=== PATIENT | male | born 1960 | race Two or more races ===

== ENCOUNTER 2017-12-09 05:21 | Inpatient (IN) | payer OTHER ==
[2017-12-09] VITALS (7 sets, daily range): BP systolic 110–130; BP diastolic 70–83
[~2017-12-09] VITALS: Ht 167.6 cm; Wt 98.4 kg
[2017-12-09] MEDS ORDERED: CELECOXIB 100 MG CAPSULE ONE (06:46)
[2017-12-09] MEDS ORDERED: CEFAZOLIN SODIUM/DEXTROSE,ISO 50 ML IV ONE (06:46)
[2017-12-09] MEDS ORDERED: oxyCODONE HCL SR 10MG TAB.SR.12H PO ONE (06:46)
[2017-12-09] MEDS ORDERED: ACETAMINOPHEN 325 MG TABLET ONE (06:46)
[2017-12-09] MEDS ORDERED: TRANEXAMIC ACID 3,000 MG in SODIUM CHLORIDE IRRIG SOLUTION 70 ML IR ONE (08:30)
[2017-12-09] MEDS ORDERED: BUPIVACAINE 0.5 % PF 150 MG/30 ML VIAL ONE (09:01)
[2017-12-09] MEDS ORDERED: KETOROLAC TROMETHAMINE INJ 30 MG/ML VIAL ONE (09:01)
[2017-12-09] MEDS ORDERED: BUPIVACAINE 0.75% DEXT-PF 2 ML AMPUL ONE (09:04)
[2017-12-09] MEDS ORDERED: MIDAZOLAM HCL 2 MG/2ML VIAL ONE (09:06)
[2017-12-09] MEDS ORDERED: FENTANYL PF 100MCG/2ML AMPUL ONE (09:06)
[2017-12-09] MEDS ORDERED: METOCLOPRAMIDE HCL 10 MG/2 ML VIAL ONE (09:07)
[2017-12-09] MEDS ORDERED: MAG HYDROX/AL HYDROX/SIMETH 30 ML UDC PO PRN ×2 (11:30→13:30)
[2017-12-09] MEDS ORDERED: MENTHOL/CETYLPYRD (CEPACOL) 1 LOZ LOZENGE MM PRN (11:30)
[2017-12-09] MEDS ORDERED: HYDROMORPHONE INJ 2 MG/ML DISP.SYRIN SQ PRN (11:30)
[2017-12-09] MEDS ORDERED: CLONIDINE HCL 0.1 MG TABLET PO PRN (11:30)
[2017-12-09] MEDS ORDERED: MAGNESIUM HYDROXIDE 30 ML UDC PO PRN ×2 (11:30→13:30)
[2017-12-09] MEDS ORDERED: ONDANSETRON HCL/PF 4 MG/2 ML VIAL IVP PRN ×3 (11:30→13:30)
[2017-12-09] MEDS ORDERED: NALOXONE HCL 0.4 MG/ML AMPUL IV PRN (11:30)
[2017-12-09] MEDS ORDERED: diphenhydrAMINE HCL 25 MG CAPSULE PO PRN (11:30)
[2017-12-09] MEDS ORDERED: oxyCODONE IR immediate release 5 MG PO PRN (12:00)
--- NOTE | 2017-12-09 12:15 | NUR ---
MS RN INITIAL NOTES 57 years old male admitted to medr unit, post op TKA right by Dr. Segovia. Patient is A/O x4, awake. Breathing on room air, denies shortness of breath. Difficulty hearing, hearing aids in place. Right knee dressing intact, scd in place. Orientation to room, unit, staff. Place call light within reach, instruction how to use provided.
[2017-12-09] MEDS ORDERED: BISACODYL SUPP (10 MG) 10 MG/SUPP.RECT SUPP.RECT RC PRN (13:00)
[2017-12-09] MEDS ORDERED: HYDROCODONE/APAP 5/325MG 1 EACH TABLET PO PRN ×2 (13:00→13:30)
[2017-12-09] MEDS ORDERED: SENNOSIDES 8.6 MG TABLET PO PRN (13:00)
[2017-12-09] MEDS ORDERED: DOCUSATE SODIUM 250 MG CAPSULE PO PRN (13:00)
[2017-12-09] MEDS ORDERED: ZOLPIDEM TARTRATE 5 MG TABLET PO PRN ×2 (13:00→13:30)
[2017-12-09] MEDS: IV D5/0.45 NACL 1,000 ML IV PRN ×2 (13:02→21:49)
[2017-12-09] MEDS ORDERED: ACETAMINOPHEN 325 MG TABLET PO PRN (13:30)
[2017-12-09] MEDS ORDERED: Z GUARD REMEDY 2 OZ OINT TP PRN (13:30)
[2017-12-09] MEDS: ANCEF 1 GM/50 ML D5W IV SCH ×2 (17:44)
[2017-12-09] MEDS: DOCUSATE SODIUM 100 MG CAPSULE PO SCH (17:46)
--- NOTE | 2017-12-09 18:23 | NUR ---
MS RN Closing notes Patient sitting up in bed, had dinner with good appetite. S/P TKA Right by Dr. Segovia today, right knee dressing intact, clean and dry. Seen by PT for eval, tolerated well, denies pain. FWB on right as ordered, tolerating CPM machine. Peterson cath in place, draining to gravity, bag off the floor. IVF infusing. VS stable. Encourage to use Incentive spirometer while awake, verbalized understanding. Will endorse to oncoming RN.
--- NOTE | 2017-12-09 19:30 | NUR ---
RN MS OPENING NOTES RECEIVED PATIENT IN BED AWAKE. ALERT AND ORIENTED X4. BREATHING EVEN AND UNLABORED. NO SOB NOTED. TOLERATING ROOM AIR. BILATERAL HEARING AIDS ON. CURRENTLY WITH NO COMPLAINTS OF PAIN OR DISCOMFORT. IV ACCESS INTACT AND PATENT - INFUSING D5 1/2 NS @ 125ML/HR. SKIN DRY AND WARM TO TOUCH. DRESSING ON SURGERY SITE CLEAN, DRY AND INTACT. DIXON CATH IN PLACE - PATENT AND DRAINING CLEAR YELLOW URINE. AFEBRILE. ALL OTHER NEEDS ATTENDED TO. SAFETY MEASURES IN PLACE. CALL LIGHT WITHIN REACH. WILL CONTINUE TO MONITOR.
[2017-12-09] MEDS ORDERED: HYDROMORPHONE INJ 2 MG/ML DISP.SYRIN IV/SQ PRN (20:30)
[2017-12-09] MEDS: TAMSULOSIN 0.4 MG CAP.SR.24H PO SCH (21:13)
[2017-12-09] MEDS: FAMOTIDINE (20 MG) 20 MG TABLET PO SCH (21:13)
[2017-12-09] MEDS: ACETAMINOPHEN 325 MG TABLET PO PRN (22:54)
[2017-12-10] MEDS: ANCEF 1 GM/50 ML D5W IV SCH ×2 (01:14)
[2017-12-10 06:27] LABS: BASOPHILS % (AUTO) 0.4 % (0.0-2.0); EOSINOPHILS % (AUTO) 0.5 % (0.0-6.0); HEMATOCRIT 40 % (39-51); HEMOGLOBIN 13.6 g/dL (13.5-17.5); LYMPHOCYTES # (AUTO) 2.2 /CMM (0.8-4.8); MEAN CORPUSCULAR HGB CONC 34 g/dl (31.0-36.0); MEAN CORPUSCULAR VOLUME 94 fL (80-96); MONOCYTES # (AUTO) 1.1 /CMM (0.1-1.30); MONOCYTES % (AUTO) 10.6 % (2.0-12.0); NEUTROPHILS # (AUTO) 7.2 /CMM (1.8-8.9); NEUTROPHILS % (AUTO) 67.5 % (43.0-81.0); PLATELET COUNT (AUTO) 259 /CMM (150-450); RDW COEFFICIENT OF VARIATION 12.4 (11.5-15.0); RED BLOOD CELL COUNT(AUTO) 4.29 MIL/uL (4.5-6.0); WHITE BLOOD COUNT (AUTO) 10.7 K/uL (4.3-11.0)
[2017-12-10] MEDS: ACETAMINOPHEN 325 MG TABLET PO PRN ×2 (06:42→20:07)
[2017-12-10 06:43] LABS: CALCIUM, SERUM 7.9 mg/dL (8.5-10.1); CREATININE 1.3 mg/dL (0.6-1.3); MAGNESIUM 1.7 mg/dL (1.8-2.4); PHOSPHORUS 2.3 mg/dL (2.5-4.9)
--- NOTE | 2017-12-10 06:50 | NUR ---
RN MS CLOSING NOTES PATIENT IN BED AWAKE. ALERT AND ORIENTED X4. BREATHING EVEN AND UNLABORED. NO SOB NOTED. TOLERATING ROOM AIR. BILATERAL HEARING AIDS ON. WITH COMPLAINTS OF MILD PAIN ON RIGHT KNEE 06/04 - TYLENOL GIVEN. IV ACCESS INTACT AND PATENT - INFUSING D5 1/2 NS @ 125ML/HR. SKIN DRY AND WARM TO TOUCH. DRESSING ON SURGERY SITE CLEAN, DRY AND INTACT. DIXON CATH IN PLACE - PATENT AND DRAINING CLEAR YELLOW URINE. AFEBRILE. ALL OTHER NEEDS ATTENDED TO. SAFETY MEASURES IN PLACE. CALL LIGHT WITHIN REACH. WILL ENDORSE TO ONCOMING NURSE FOR CONTINUITY OF CARE.
--- NOTE | 2017-12-10 07:00 | NUR ---
MS RN OPENING NOTE RECEIVED PT IN BED, ALERT AND ORIENTED X4. DENIES N/V, CHEST PAIN, SOB. BREATHING IS EVEN AND UNLABORED ON ROOM AIR. PT RATES PAIN 1/10 IN THE RIGHT KNEE AND TOLERABLE. R AC #18G IV IS INFUSING D51/2NS @ 125ML/HR WITHOUT REDNESS OR SWELLING. DIXON CATHETER NOTED TO BE DRAINING CLEAR, YELLOW URINE. R KNEE DRESSING IS CLEAN, DRY, AND INTACT. SCDS ARE IN PLACE. ALL NEEDS ATTENDED TO, BED IS LOCKED AND IN LOWEST POSITION, SIDE RAILS UP X2, CALL LIGHT WITHIN REACH.
[2017-12-10] MEDS ORDERED: LOSA1TAB39 PO (07:38)
[2017-12-10 08:00] VITALS: BP 146/85
[2017-12-10] MEDS: DOCUSATE SODIUM 100 MG CAPSULE PO SCH ×2 (08:06→17:56)
[2017-12-10] MEDS: ASPIRIN 325 MG TABLET PO SCH ×2 (08:06→17:56)
[2017-12-10] MEDS: FAMOTIDINE (20 MG) 20 MG TABLET PO SCH ×2 (08:06→20:06)
[2017-12-10] MEDS: IV D5/0.45 NACL 1,000 ML IV PRN (08:07)
[2017-12-10] MEDS: oxyCODONE IR immediate release 5 MG PO PRN ×2 (09:18→13:38)
[2017-12-10] MEDS ORDERED: ENOXAPARIN SODIUM 40 MG/0.4 ML DISP.SYRIN SQ SCH (10:00)
[2017-12-10] MEDS ORDERED: NEUTRA PHOS 1 POWD.PACKET PO ONE (10:00)
[2017-12-10] MEDS: Magnesium 1GM/D5W 100ML PREMIX 100 ML IV SCH ×3 (10:47→13:37)
--- NOTE | 2017-12-10 11:00 | NUR ---
MS RN D/C DIXON DIXON REMOVED, CATHETER TIP INTACT. PT TOLERATED PROCEDURE WELL. EDUCATED PT TO ALERT NURSING STAFF FOR THE FIRST VOID. URINAL PLACED AT THE BEDSIDE, VOIDING TRIAL INITIATED.
--- NOTE | 2017-12-10 11:45 | NUR ---
MS RN PT VOIDED PT VOIDED 175ML OF CLEAR, YELLOW URINE. REPORTS NO FEELINGS OF DISCOMFORT OR PAIN.
[2017-12-10] MEDS ORDERED: BISACODYL (5 MG) 5 MG TABLET.DR PO PRN (12:00)
[2017-12-10] MEDS ORDERED: BISACODYL SUPP (10 MG) 10 MG/SUPP.RECT SUPP.RECT RC PRN (12:00)
[2017-12-10] MEDS: LOSARTAN PO SCH (15:53)
[2017-12-10] MEDS: HCTZ PO SCH (15:53)
[2017-12-10 16:00] VITALS: BP 145/80
--- NOTE | 2017-12-10 18:04 | NUR ---
MS RN CLOSING NOTE PT IN BED, ALERT AND ORIENTED X4, DENIES N/V, CHEST PAIN, SOB, BREATHING IS EVEN AND UNLABORED ON ROOM AIR. PT RATES PAIN 4/10 IN THE RIGHT KNEE AND TOLERABLE. PT WAS ABLE TO AMBULATE WITH PHYSICAL THERAPIST TODAY X2 AND TOLERATED CPM MACHINE FOR APPROXIMATELY 4 HOURS. DRESSING IS CLEAN, DRY AND INTACT, FIRST DRESSING CHANGE TO BE DONE BY MD TOMORROW 12/11/17. NEUROVASCULAR STATUS IS INTACT, SCDS ARE IN PLACE. ALL NEEDS ATTENDED TO, BED IS LOCKED AND IN LOWEST POSITION, SIDE RAILS UP X2, CALL LIGHT WITHIN REACH. WILL ENDORSE TO GIMP TACKER RN FOR CONTINUITY OF CARE
--- NOTE | 2017-12-10 19:10 | NUR ---
MS RN OPENING NOTE Patient was seen lying in bed AAOx4, breathing comfortably on RA with no SOB, and no signs of acute distress. Right knee/leg is wrapped with a bandage that is clean, dry, and intact (s/p right knee arthroplasty on 12/09). Patient reports mild pain at this time. IV in the right AC is intact and patent. Bed is low/locked, two side rails up, and call patel within reach. Patient has no immediate needs/concerns at this time. Will continue to monitor.
[2017-12-10 20:00] VITALS: BP 148/72
[2017-12-10 20:05] VITALS: BP 148/72
--- NOTE | 2017-12-10 20:07 | NUR ---
MS RN NOTE - Tylenol Patient requested Tylenol for mild right knee pain, described at 06/04 aching (s/p knee arthroplasty 12/09). 650mg PO Tylenol was given per orders.
[2017-12-10] MEDS: TAMSULOSIN 0.4 MG CAP.SR.24H PO SCH (21:45)
--- NOTE | 2017-12-11 07:03 | NUR ---
MS RN CLOSING NOTE Patient slept well overnight without complications and remains in stable condition with no signs of acute distress. Patient care endorsed to day shift nurse.
[2017-12-11 07:13] LABS: BASOPHILS % (AUTO) 0.3 % (0.0-2.0); EOSINOPHILS % (AUTO) 0.2 % (0.0-6.0); HEMATOCRIT 39 % (39-51); HEMOGLOBIN 13.1 g/dL (13.5-17.5); LYMPHOCYTES # (AUTO) 3.3 /CMM (0.8-4.8); LYMPHOCYTES % (AUTO) 25.1 % (20.0-44.0); MEAN CORPUSCULAR HGB CONC 33 g/dl (31.0-36.0); MEAN CORPUSCULAR VOLUME 94 fL (80-96); MONOCYTES # (AUTO) 1.6 /CMM (0.1-1.30); NEUTROPHILS # (AUTO) 8.1 /CMM (1.8-8.9); NEUTROPHILS % (AUTO) 62.4 % (43.0-81.0); PLATELET COUNT (AUTO) 236 /CMM (150-450); RDW COEFFICIENT OF VARIATION 12.3 (11.5-15.0); RED BLOOD CELL COUNT(AUTO) 4.19 MIL/uL (4.5-6.0)
--- NOTE | 2017-12-11 07:15 | NUR ---
MS RN OPENING NOTE Received pt in bed, alert and oriented x4, denies n/v, chest pain, sob. Breathing is even and unlabored on room air, pt rates pain 2/10 in the r knee and tolerable at this time. R AC 18g IV is saline locked, clean, dry and intact. All needs attended to. Pt is currently on CPM machine and tolerating current settings. Bed is locked and in lowest position, side rails up x2, call light within reach.
[2017-12-11 07:21] LABS: CALCIUM, SERUM 8.2 mg/dL (8.5-10.1); CREATININE 1.1 mg/dL (0.6-1.3); MAGNESIUM 2.1 mg/dL (1.8-2.4); PHOSPHORUS 3.1 mg/dL (2.5-4.9); POTASSIUM 3.8 mmol/L (3.5-5.1)
[2017-12-11 08:00] VITALS: BP_SYST 132; BP_SYST 155; BP_DIAS 80; BP_DIAS 83
[2017-12-11] MEDS: DOCUSATE SODIUM 100 MG CAPSULE PO SCH ×2 (08:19→16:37)
[2017-12-11] MEDS: FAMOTIDINE (20 MG) 20 MG TABLET PO SCH ×2 (08:19→20:57)
[2017-12-11] MEDS: HCTZ PO SCH (08:19)
[2017-12-11] MEDS: ASPIRIN 325 MG TABLET PO SCH ×2 (08:19→16:37)
[2017-12-11] MEDS: LOSARTAN PO SCH (08:19)
[2017-12-11 16:00] VITALS: BP 141/72
[2017-12-11] MEDS ORDERED: hydrALAZINE HCL 25 MG TABLET PO PRN (16:30)
[2017-12-11] MEDS: ACETAMINOPHEN 325 MG TABLET PO PRN (17:31)
--- NOTE | 2017-12-11 18:36 | NUR ---
MS RN CLOSING NOTE PT IN BED, ALERT AND ORIENTED X4. DENIES N/V, CHEST PAIN, SOB. BREATHING IS EVEN AND UNLABORED ON ROOM AIR. PT RATES PAIN 1/10 AT THE RIGHT KNEE AND TOLERABLE AT THIS TIME. R AC #18GIV IS SALINE LOCKED WITHOUT REDNESS OR SWELLING. R KNEE DRESSING CHANGED BY MD TODAY AND IS CLEAN, DRY AND INTACT. PT ABLE TO AMBULATE X2 TODAY WITH PHYSICAL THERAPIST, SIT IN CHAIR, AND TOLERATED APPROXIMATELY 5 HOURS OF CPM. PT IS PENDING ACCEPTANCE TO [facility] FOR D/C. ALL NEEDS ATTENDED TO, SCDS IN PLACE, BED IS LOCKED AND IN LOWEST POSITION, SIDE RAILS UPX2, CALL LIGHT WITHIN REACH. WILL ENDORSE TO COLORED LIQUID PLASTIC APPLIER RN FOR CONTINUITY OF CARE.
[2017-12-11 20:00] VITALS: BP 137/76
[2017-12-11 20:26] VITALS: BP 137/76
--- NOTE | 2017-12-11 21:08 | NUR ---
recieved alert and orientated makes his needs known. smiling denies need for pain medication at this time. chucho wrap on the right knee CDI. PPP and foot warm and movement seen
[2017-12-11] MEDS: TAMSULOSIN 0.4 MG CAP.SR.24H PO SCH (22:11)
[2017-12-12] MEDS: oxyCODONE IR immediate release 5 MG PO PRN ×3 (03:57→16:42)
--- NOTE | 2017-12-12 06:21 | NUR ---
ENDING NOTES: SLEPT FOR 9 GARCIA MEDICATED X1 WITHOXYCODONE FOR RIGHT NEE PAIN AND EFFECTIVE. CPM MACHINE PUT ON PER HIS REQUISTE.RS OF THE 12 HOURS OF THIS SHIFT. VERBALIZES HIS NEEDS
--- NOTE | 2017-12-12 07:45 | NUR ---
RN OPENING NOTES RECEIVED PT. PT STABLE AND SLEEPING IN BED. NO S/S OF RESP DISTRESS/SOB. PT DOES NOT APPEAR TO BE IN PAIN AT THIS TIME. IV ACCESS ON RAC 18G SL. S/P R TOTAL KNEE PERFORMED ON 12/09, SX DRESSING CLEAN AND INTACT. PER PT NOTE, PT IS FWB ON RIGHT LEG. SAFETY MEASURES IN PLACE, CALL LIGHT WITHIN REACH. WILL CONTINUE TO MONITOR.
[2017-12-12 08:00] VITALS: BP 126/82
[2017-12-12 08:01] LABS: CALCIUM, SERUM 8.6 mg/dL (8.5-10.1); CREATININE 1.1 mg/dL (0.6-1.3); MAGNESIUM 1.8 mg/dL (1.8-2.4); PHOSPHORUS 3.3 mg/dL (2.5-4.9); POTASSIUM 4.1 mmol/L (3.5-5.1)
[2017-12-12] MEDS ORDERED: LOSARTAN/HCTZ 50-12.5MG/ 1 EA TABLET PO SCH (09:00)
[2017-12-12] MEDS: FAMOTIDINE (20 MG) 20 MG TABLET PO SCH (09:19)
[2017-12-12] MEDS: DOCUSATE SODIUM 100 MG CAPSULE PO SCH ×2 (09:19→16:34)
[2017-12-12] MEDS: ASPIRIN 325 MG TABLET PO SCH ×2 (09:19→16:34)
[2017-12-12] MEDS ORDERED: DOCU-141 PO (11:14)
[2017-12-12] MEDS ORDERED: OXYC5CAP18 PO (11:14)
[2017-12-12] MEDS ORDERED: TAMS-12 PO (11:14)
[2017-12-12] MEDS ORDERED: BISA10SU8 RC (11:14)
[2017-12-12] MEDS ORDERED: ASPI-992 PO (11:14)
[2017-12-12] MEDS ORDERED: HYDR-4076 PO (11:14)
[2017-12-12] MEDS ORDERED: FAMO20TA80 PO (11:14)
[2017-12-12 15:56] VITALS: BP 122/68
--- NOTE | 2017-12-12 18:17 | NUR ---
RN NOTES WASTE DILAUDID 2MG/ML VIAL WITH RN, TAVARES BRYANT, PER PHARMACY DIRECTION. PT ADMIN AMOUNT = 0 MG. 2MG TOTAL WASTED.
--- NOTE | 2017-12-12 19:16 | NUR ---
DISCHARGE NOTE PT DISCHARGED HOME WITH HOME HEALTH. PRESCRIPTION FOR PAIN MGMNT PROVIDED IN ADVANCE BY DR. TAN. IV ACCESS AND ID BAND REMOVED. PT STABLE, VSS, NO S/S OF RESP DISTRESS/SOB, NO C/O PAIN. ALL D/C PAPERWORK SIGNED, COPIED, PLACED IN CHART. PT REFUSED PHOTO SKIN DOCUMENTATION. F/U WITH DR. VENEGAS TO OCCUR WITHIN 10 DAYS PER MD D/C NOTE. PT LEFT HOSPITAL IN PRIVATE AMBULANCE WITH MEDICAL TRANSPORTATION AND SON.
== END 2017-12-12 18:14 | disposition home health service (06) | DRG 470 ==
LOC: DS 05:21 → MED 11:58
PROVIDERS: ADMIT Family Medicine; ATTEND Family Medicine
PROC: 0SRC0J9 Replacement of Right Knee Joint with Synthetic Substitute, Cemented, Open Approach (ICD-10-PCS; principal; 2017-12-09 09:15)
DX: M17.11 Unilateral primary osteoarthritis, right knee (principal); E66.9 Obesity, unspecified; I10 Essential (primary) hypertension; Z68.35 Body mass index [BMI] 35.0-35.9, adult; M22.41 Chondromalacia patellae, right knee; Z87.891 Personal history of nicotine dependence; Z82.3 Family history of stroke; E83.39 Other disorders of phosphorus metabolism; R73.03 Prediabetes; E83.42 Hypomagnesemia; E78.5 Hyperlipidemia, unspecified; S83.281A Other tear of lateral meniscus, current injury, right knee, initial encounter; X58.XXXA Exposure to other specified factors, initial encounter; Y92.9 Unspecified place or not applicable
CPT/HCPCS: 36415; 80048-TC; 80061-TC; 83735-TC; 84100-TC; 85025-TC; 86850-TC; 86921-TC; 87081-TC; 88305-TC; 88311-TC; 97110-TC; 97116-TC; 97530-TC; 97760-TC; A4217; A6402; C1713; G0378; J0690; J1170; J1650; J1885; J2250; J2405; J2704; J2765; J3010; J3475; J3490; J7050; J7060; L1830; Z7610

== ENCOUNTER 2019-08-03 04:53 | Inpatient (IN) | payer OTHER ==
[~2019-08-03] VITALS: Ht 167.6 cm; Wt 106.6 kg
[~2019-08-03 04:53] MED LIST: ASPI-992 PO; BISA10SU11 RC; DOCU-141 PO; FAMO20TA80 PO; HYDR-4076 PO; LOSA1TAB39 PO; OXYC5CAP18 PO; TAMS-12 PO
[2019-08-03] MEDS ORDERED: BACITRACIN 50000 UNITS/VIAL ONE (06:02)
[2019-08-03] MEDS ORDERED: ANESTHESIA TRAY IN PYXIS 1 EA TRAY MC ONE (06:02)
[2019-08-03] MEDS ORDERED: BUPIVACAINE MPF 0.5% W/EPI INJ 30 ML VIAL ONE (06:03)
[2019-08-03] MEDS ORDERED: MIDAZOLAM HCL 2 MG/2ML VIAL ONE (06:27)
[2019-08-03] MEDS ORDERED: BUPIVACAINE 0.5 % PF 150 MG/30 ML VIAL ONE (06:27)
[2019-08-03] MEDS ORDERED: FENTANYL PF 100MCG/2ML AMPUL ONE (06:27)
[2019-08-03] MEDS ORDERED: TRANEXAMIC ACID 3,000 MG in SODIUM CHLORIDE IRRIG SOLUTION 70 ML IR ONE (07:00)
--- NOTE | 2019-08-03 09:52 | NUR ---
rn notes received patient from OR, 141/80 83, 98% on 2L nasal cannula, 97.7 temp and 18 RR at this time.
[2019-08-03] MEDS ORDERED: oxyCODONE IR immediate release 5 MG PO PRN (10:00)
[2019-08-03] MEDS ORDERED: NALOXONE HCL 0.4 MG/ML AMPUL IV PRN (10:00)
[2019-08-03] MEDS ORDERED: MENTHOL/CETYLPYRD (CEPACOL) 1 LOZ LOZENGE PO PRN (10:00)
[2019-08-03] MEDS ORDERED: HYDROMORPHONE 1 MG/1 ML DISP.SYRIN IM/IV/SC PRN (10:00)
[2019-08-03] MEDS ORDERED: ACETAMINOPHEN ES 500 MG TABLET PO PRN (10:00)
[2019-08-03] MEDS ORDERED: ONDANSETRON HCL/PF 4 MG/2 ML VIAL IV PRN (10:00)
[2019-08-03] MEDS ORDERED: diphenhydrAMINE HCL 25 MG CAPSULE PO PRN (10:00)
[2019-08-03] MEDS ORDERED: HYDROMORPHONE 1 MG/1 ML DISP.SYRIN SQ PRN (10:00)
[2019-08-03] MEDS ORDERED: MAG HYDROX/AL HYDROX/SIMETH 30 ML UDC PO PRN (10:00)
[2019-08-03] MEDS ORDERED: CLONIDINE HCL 0.1 MG TABLET PO PRN (10:00)
[2019-08-03] MEDS ORDERED: MAGNESIUM HYDROXIDE 30 ML UDC PO PRN (10:00)
[2019-08-03] MEDS: BUPROPION XL 150 MG TAB.ER.24 PO SCH (10:55)
[2019-08-03] MEDS: LOSARTAN/HCTZ 50-12.5MG/ 1 EA TABLET PO SCH ×2 (11:00→16:19)
[2019-08-03] MEDS: oxyCODONE IR immediate release 5 MG PO PRN ×3 (11:10→23:05)
[2019-08-03] MEDS ORDERED: SENNOSIDES 8.6 MG TABLET PO PRN (11:30)
[2019-08-03] MEDS ORDERED: IV D5/0.45 NACL 1,000 ML IV PRN (11:30)
[2019-08-03] MEDS ORDERED: BISACODYL SUPP (10 MG) 10 MG/SUPP.RECT SUPP.RECT RC PRN (11:30)
[2019-08-03] MEDS ORDERED: ZOLPIDEM TARTRATE 5 MG TABLET PO PRN (11:30)
[2019-08-03] MEDS ORDERED: ESCI10TA PO (12:49)
[2019-08-03] MEDS ORDERED: OLME20TA13 PO (13:56)
[2019-08-03] MEDS ORDERED: METF-440 PO (13:56)
[2019-08-03] MEDS ORDERED: BUSP10TA35 PO (13:56)
[2019-08-03] MEDS: ANCEF 1 GM/50 ML D5W IV SCH ×4 (14:45→22:57)
[2019-08-03] MEDS: busPIRone 5 MG TABLET PO SCH (16:18)
[2019-08-03] MEDS: DOCUSATE SODIUM 100 MG CAPSULE PO SCH (16:19)
--- NOTE | 2019-08-03 17:19 | NUR ---
rn notes patient remains on 2L nasal cannula, no sob noted, patient states that pain is under control at this time. L hand present, saline lock, D5 1/2 NS was only for when the patient was NPO. Patient able to walk to the restroom with walker, good balance. Patient can move bilateral legs, has good sensation and no numbing sensation. bed at the lowest setting, call light within reach, side rails upx2.
--- NOTE | 2019-08-03 19:00 | NUR ---
MS/RN NOTES: RECEIVED PT. A/OX4, VERBALLY RESPONSIVE AND ABLE TO MAKE NEEDS KNOWN. NO SOB NOTED, NO ACUTE S/S OF DISTRESS. BREATHING EVEN AND UNLABORED. ON 2L OF OXYGEN VIA NC. NO C/O PAIN AT THIS TIME. HEARING AID PRESENT WITH THE PT ON BOTH EARS. F/C PRESENT AND DRAINING TO GRAVITY, WITH YELLOW, CLEAR OUTPUT. PAIN IS MANAGED AT THIS TIME. PT. HAS GOOD SENSATION AND NO NUMBNESS ON THE. ABLE TO MOVE BILATERAL LEGS. BED ALARM ON. CALL LIGHT WITHIN REACH. SAFETY MEASURES INITIATED. BED IN LOWEST, LOCKED POSITION WITH SR UP X2. WILL KEEP MONITORING ACCORDINGLY.
[2019-08-03 20:00] VITALS: BP 142/96
[2019-08-03] MEDS: FAMOTIDINE (20 MG) 20 MG TABLET PO SCH (21:14)
[2019-08-03] MEDS: TAMSULOSIN 0.4 MG CAP.SR.24H PO SCH (21:14)
--- NOTE | 2019-08-03 23:07 | NUR ---
MS/RN NOTES: PT REQUESTED FOR PAIN MED. PAIN LEVEL IS 5/10. VSS. ADMINISTERED OXYCODONE PO 5MG ORDERED. WILL CONTINUE TO MONITOR ACCORDINGLY.
--- NOTE | 2019-08-03 23:32 | NUR ---
MS/RN NOTES: PT. VTE SCORE OF 2. ORDERED DVT PUMPS PROTOCOL. ASPIRIN 325MG Q1D. ALREADY ORDERED; PER DR. CASTANEDA, "NO OTHER ANTICOAGULANTS TO BE USED".
--- NOTE | 2019-08-04 06:02 | NUR ---
MS/RN NOTES: DC' DIXON CATH POST OP DAY [address] CASTANEDA. URINAL AT BEDSIDE. PT. DENIES PAIN AT THIS TIME. WILL KEEP MONITORING.
--- NOTE | 2019-08-04 06:25 | NUR ---
MS/RN NOTES: SPOEK WITH DR. TAN REGARDING PT'S UPDATES ON CONDITION. INCENTIVE SPIROMETER AT BEDSIDE. PT EDUCATED ON HOW TO USE IT.
--- NOTE | 2019-08-04 07:00 | NUR ---
MS/RN CLOSING NOTES: RECEIVED PT. A/OX4, VERBALLY RESPONSIVE AND ABLE TO MAKE NEEDS KNOWN. NO SOB NOTED, NO ACUTE S/S OF DISTRESS. BREATHING EVEN AND UNLABORED. ON ROOM AIR SATURATING WELL. NO C/O PAIN AT THIS TIME. HEARING AID PRESENT WITH THE PT ON BOTH EARS. F/C IS DC'D ORDERED. WITH YELLOW, CLEAR TOTAL OUTPUT OF 800. PAIN IS MANAGED AT THIS TIME. PT. HAS GOOD SENSATION AND NO NUMBNESS ON THE. ABLE TO MOVE BILATERAL LEGS. BED ALARM ON. DVT PUMPS ON. DR. TAN AT BEDSIDE. CALL LIGHT WITHIN REACH. SAFETY MEASURES INITIATED. BED IN LOWEST, LOCKED POSITION WITH SR UP X2. WILL ENDORSE TO DAY SHIFT FOR JOSÉ.
--- NOTE | 2019-08-04 07:39 | NUR ---
rn notes patient received on 2L nasal cannula, no sob noted, patient denies pain at this time. Dressing is intact, no blood leaking. Pain has been under control with minimal medications. L hand 22 gauge saline lock. Nicholas barrios'selwyn around 1800 by NAS RN. Bed at the lowest setting, call light within reach, side rails up x2.
[2019-08-04 08:00] VITALS: BP 150/86
[2019-08-04] MEDS: LOSARTAN/HCTZ 50-12.5MG/ 1 EA TABLET PO SCH ×2 (08:24→16:51)
[2019-08-04] MEDS: busPIRone 5 MG TABLET PO SCH ×2 (08:24→16:51)
[2019-08-04] MEDS: FAMOTIDINE (20 MG) 20 MG TABLET PO SCH ×2 (08:24→21:09)
[2019-08-04] MEDS: DOCUSATE SODIUM 100 MG CAPSULE PO SCH ×2 (08:24→16:51)
[2019-08-04] MEDS: BUPROPION XL 150 MG TAB.ER.24 PO SCH (08:24)
[2019-08-04] MEDS: oxyCODONE IR immediate release 5 MG PO PRN (10:12)
[2019-08-04 16:00] VITALS: BP 148/87
--- NOTE | 2019-08-04 17:46 | NUR ---
rn notes patient remains on 2L nasal cannula at this time with no sob noted, patient denies pain at this time and does pretty well with minimal pain medication through out the shift. Bilateral hearing aid present. Knee immobilizer education by PT to the patient. CPM was seen placed twice about 2 hours each time, patient tolerated well with no complications. Change dressing tomorrow prior to DC tomorrow per MENDY Quiroz. Bed at the lowest setting, call light within reach, side rails up x2.
--- NOTE | 2019-08-04 19:33 | NUR ---
MS RN OPENING NOTES PATIENT RECEIVED RESTING IN BED A/O X4. ON 2L OF O2 VIA NC WITH BREATHING EVEN AND UNLABORED, NO SOB NOTED, NO SIGNS OF ACUTE DISTRESS. NO COMPLAINTS OF PAIN OR DISCOMFORT AT THE MOMENT. IV ON L HAND #22 SL. SAFETY PRECAUTIONS IN PLACE WITH BED IN LOWEST POSITION, CALL LIGHT WITHIN REACH, BREAKS ON, SIDE RAILS UP. WILL CONTINUE TO MONITOR THROUGHOUT THE SHIFT.
[2019-08-04 20:00] VITALS: BP 162/95
[2019-08-04] MEDS: TAMSULOSIN 0.4 MG CAP.SR.24H PO SCH (21:09)
[2019-08-04] MEDS: ASPIRIN EC 325 MG TABLET.DR PO SCH (21:09)
--- NOTE | 2019-08-04 21:14 | NUR ---
MS RN NOTES PRN CLONIDINE ADMINISTERED DUE TO BP OF 162/95. NO SIGNS OF ACUTE DISTRESS. WILL CONTINUE TO MONITOR.
--- NOTE | 2019-08-05 05:45 | NUR ---
MS RN NOTES MD TAN CALLED FOR UPDATE ON PATIENT. NO NEW UPDATE, PATIENT STABLE ON RA. USING INCENTIVE SPIROMETER. NO PAIN MEDICATION GIVEN THROUGHOUT THE NIGHT, PATIENT HAD NO COMPLAINTS OF PAIN.
[2019-08-05] MEDS ORDERED: ACETAMINOPHEN ES 500 MG TABLET PO ONE (06:17)
[2019-08-05 06:39] LABS: BASOPHILS # (AUTO) 0.1 /CMM (0.0-0.2); BASOPHILS % (AUTO) 0.4 % (0.0-2.0); EOSINOPHILS % (AUTO) 0.1 % (0.0-6.0); HEMATOCRIT 35 % (39-51); HEMOGLOBIN 12.4 g/dL (13.5-17.5); LYMPHOCYTES # (AUTO) 2.5 /CMM (0.8-4.8); LYMPHOCYTES % (AUTO) 16.7 % (20.0-44.0); MEAN CORPUSCULAR HGB CONC 35 g/dl (31.0-36.0); MEAN CORPUSCULAR VOLUME 90 fL (80-96); MONOCYTES # (AUTO) 2.1 /CMM (0.1-1.30); NEUTROPHILS # (AUTO) 10.3 /CMM (1.8-8.9); NEUTROPHILS % (AUTO) 68.8 % (43.0-81.0); PLATELET COUNT (AUTO) 245 /CMM (150-450); RED BLOOD CELL COUNT(AUTO) 3.94 MIL/uL (4.5-6.0); WHITE BLOOD COUNT (AUTO) 14.9 K/uL (4.3-11.0)
[2019-08-05 06:56] LABS: CALCIUM, SERUM 8.9 mg/dL (8.5-10.1); CREATININE 1.2 mg/dL (0.6-1.3); POTASSIUM 3.8 mmol/L (3.5-5.1)
--- NOTE | 2019-08-05 06:59 | NUR ---
MS RN CLOSING NOTES PATIENT RESTING IN BED A/O X4. ON ROOM AIR WITH BREATHING EVEN AND UNLABORED, NO SOB NOTED, NO SIGNS OF ACUTE DISTRESS. NO COMPLAINTS OF PAIN OR DISCOMFORT AT THE MOMENT. IV ON L HAND #22 SL. SAFETY PRECAUTIONS IN PLACE WITH BED IN LOWEST POSITION, CALL LIGHT WITHIN REACH, BREAKS ON, SIDE RAILS UP. ALL NEEDS ATTENDED TO. WILL CONTINUE TO MONITOR THROUGHOUT THE SHIFT.
--- NOTE | 2019-08-05 07:36 | NUR ---
rn notes patient received on 2L nasal cannula, no sob noted, patient denies pain at this time. L hand 22 gauge present and is patent. Bed at the lowest setting, call light within reach, side rails up x2.
[2019-08-05 08:00] VITALS: BP 136/80
[2019-08-05] MEDS: LOSARTAN/HCTZ 50-12.5MG/ 1 EA TABLET PO SCH (08:39)
[2019-08-05] MEDS: BUPROPION XL 150 MG TAB.ER.24 PO SCH (08:39)
[2019-08-05] MEDS: FAMOTIDINE (20 MG) 20 MG TABLET PO SCH ×2 (08:40→21:20)
[2019-08-05] MEDS: ASPIRIN EC 325 MG TABLET.DR PO SCH (08:40)
[2019-08-05] MEDS: busPIRone 5 MG TABLET PO SCH ×2 (08:40→16:38)
[2019-08-05] MEDS: DOCUSATE SODIUM 100 MG CAPSULE PO SCH ×2 (08:40→16:38)
[2019-08-05] MEDS: oxyCODONE IR immediate release 5 MG PO PRN (08:47)
[2019-08-05] MEDS ORDERED: LOSARTAN POTASSIUM 50 MG TABLET PO SCH (12:00)
[2019-08-05 12:42] LABS: CALCIUM, SERUM 8.9 mg/dL (8.5-10.1); CREATININE 1.3 mg/dL (0.6-1.3); POTASSIUM 3.9 mmol/L (3.5-5.1)
[2019-08-05 16:00] VITALS: BP 136/85
--- NOTE | 2019-08-05 18:03 | NUR ---
rn notes patient remains a.o x4, no sob noted, patient states that his pain is very well under control. Feelings on both legs, able to move. Patient able to use walker to go to the restroom. L hand 22 present at this time and is patent. Dressing was changed by PA today. More PT planned tomorrow. Bed at the lowest setting, call light within reach, side rails up x2.
--- NOTE | 2019-08-05 19:30 | NUR ---
RN OPENING NOTES RECEIVED PATIENTI N BED RESTING COMFORTABLY. A/O X4.PATIENT IN NO S/SX OF ACUTE DISTRESS AT THIS TIME. NO SOB NOTED. PATIENT'S BREATHING IS EVEN AND UNLABORED; ON RA NO COMPLAINTS OF PAIN OR DISCOMFORT AT THE MOMENT. IV ON L HAND #22, INTACT AND PATENT. SAFETY PRECAUTIONS IN PLACE WITH BED IN LOWEST POSITION, CALL LIGHT WITHIN REACH, BREAKS ON, SIDE RAILS UP. WILL CONTINUE TO MONITOR THROUGHOUT THE SHIFT. Addendum: 08/06/19 at 0356 by GARRY PERDOMO RN CORRECTION: NO IV ACCESS NOTED.
--- NOTE | 2019-08-05 19:35 | NUR ---
RN NOTES PATIENT REFUSED NEW IV LINE INSERTION. RISK AND BENEFITS EXPLAINED TO PATIENT.
[2019-08-05 20:00] VITALS: BP 126/77
[2019-08-05] MEDS: TAMSULOSIN 0.4 MG CAP.SR.24H PO SCH (21:21)
[2019-08-05 22:00] VITALS: BP 126/77
--- NOTE | 2019-08-06 06:33 | NUR ---
RN CLOSING NOTE: PATIENT REMAINS IN ROOM RESTING COMFORTABLY.NO SIGNS OF RESPIRATORY, ON RA;TOLERATING WELL SATURATING @ >95% SP02.PATIENT IS CLEAN , DRY AND COMFORTABLE THROUGHOUT THE SHIFT. ALL DUE MEDS GIVEN ORDERED ; PATIENT TOLERATED WELL. SAFETY MEASURES IMPLEMENTED, BED IN LOWEST POSITION, LOCKED, SIDE RAILS UP, CALL LIGHT WITHIN REACH. ENDORSED TO ONCOMING SHIFT RN FOR CONTINUITY OF CARE AND OTHER NEEDS.
--- NOTE | 2019-08-06 07:28 | NUR ---
RN NOTE: RECEIVED PATIENT IN BED RESTING COMFORTABLY IN MODERATE HIGH BACK REST. A/O X4. NO SIGNS OF DISTRESS NOTED AT THIS TIME, ON RA, NO IV ACCESS PER YOUTH MANAGER REFUSED IV RE-INSERTION, SAFETY MEASURES IN PLACE, BED IN LOWEST POSITION, LOCKED, SIDE RAILS UP, CALL LIGHT WITHIN REACH. WILL CONTINUE TO MONITOR.
[2019-08-06 08:22] VITALS: BP 128/63
[2019-08-06] MEDS: BUPROPION XL 150 MG TAB.ER.24 PO SCH (08:22)
[2019-08-06] MEDS: LOSARTAN/HCTZ 50-12.5MG/ 1 EA TABLET PO SCH (08:22)
[2019-08-06] MEDS: ASPIRIN EC 325 MG TABLET.DR PO SCH (08:22)
[2019-08-06] MEDS: busPIRone 5 MG TABLET PO SCH (08:22)
[2019-08-06] MEDS: FAMOTIDINE (20 MG) 20 MG TABLET PO SCH (08:22)
[2019-08-06] MEDS: DOCUSATE SODIUM 100 MG CAPSULE PO SCH (08:22)
[2019-08-06 10:09] LABS: CALCIUM, SERUM 9.1 mg/dL (8.5-10.1); CREATININE 1.2 mg/dL (0.6-1.3); POTASSIUM 3.7 mmol/L (3.5-5.1)
[2019-08-06 11:45] LABS: THYROID STIMULATING HORMONE 1.421 uIU/mL (0.358-3.74); URIC ACID 5.2 mg/dL (2.6-7.2)
[2019-08-06 12:06] LABS: MAGNESIUM 2.1 mg/dL (1.8-2.4); PHOSPHORUS 3.2 mg/dL (2.5-4.9)
[2019-08-06 13:33] LABS: URINE SODIUM, RANDOM 9 mmol/l (40-220)
[2019-08-06 13:45] LABS: OSMOLALITY,URINE 143 mOS/kg (340-1090)
--- NOTE | 2019-08-06 16:18 | NUR ---
RN NOTES PATIENT DISCHARGED IN STABLE CONDITION. A/O X4. ABLE TO MAKE NEEDS KNOWN.. V/S TAKEN, STABLE AND RECORDED. NO IV ACCESS, SKIN IS INTACT, NOTED WITH POST OP INCISION ON LEFT KNEE, CLEAN AND DRESSING WAS CHANGED, PATIENT REFUSED PICTURES OF LEFT KNEE. NAME ARM BAND REMOVED. ALL BELONGINGS CHECKED AND SIGNED. PRESCRIPTION FOR PAIN MEDICATION GIVEN TO PATIENT AND HEALTH TEACHINGS/DISCHARGED INSTRUCTIONS GIVEN TO PATIENT AND PATIENT'S SON, VERBALIZED UNDERSTANDING. PATIENT LEFT UNIT VIA WHEELCHAIR WITH NO ACUTE SIGNS OF DISTRESS. PATIENT ASSISTED TO THE ABBY CHARGE NURSE AWARE OF DISCHARGED. Addendum: 08/06/19 at 1623 by TOMASA MONTESINOS RN RN DISCHARGED NOTES
== END 2019-08-06 16:05 | disposition home or self-care (01) | DRG 470 ==
LOC: DS 04:53 → EDSTATUS 08:10 → MED 09:01
PROC: 0SRD0L9 Replacement of Left Knee Joint with Medial Unicondylar Synthetic Substitute, Cemented, Open Approach (ICD-10-PCS; principal; 2019-08-03)
DX: M17.12 Unilateral primary osteoarthritis, left knee (principal); E87.1 Hypo-osmolality and hyponatremia; K21.9 Gastro-esophageal reflux disease without esophagitis; I10 Essential (primary) hypertension; E66.9 Obesity, unspecified; Z68.37 Body mass index [BMI] 37.0-37.9, adult; T50.2X5A Adverse effect of carbonic-anhydrase inhibitors, benzothiadiazides and other diuretics, initial encounter; Y92.89 Other specified places as the place of occurrence of the external cause; E87.6 Hypokalemia; Z96.651 Presence of right artificial knee joint; Z87.891 Personal history of nicotine dependence; D72.829 Elevated white blood cell count, unspecified
CPT/HCPCS: 36415; 80048-TC; 82533; 83735-TC; 83935-TC; 84100-TC; 84300-TC; 84443-TC; 84550-TC; 85025-TC; 86850-TC; 86921-TC; 87081-TC; 88305-TC; 88311-TC; 97110-TC; 97116-TC; 97530-TC; 97760-TC; A4217; C1713; C1776; G0378; J0690; J1170; J2250; J2704; J3010; J3490; J7060; U0003-CS